=== PATIENT | male | born 1955 | race Caucasian/White ===

== ENCOUNTER 2020-05-10 07:26 | Emergency (ER) | payer OTHER ==
[~2020-05-10] VITALS: Ht 177.8 cm; Wt 86.2 kg
[~2020-05-10 07:26] MED LIST: DARVOCET-N 1001 EACH PO; NAPROSYN500 MG PO; PROSTATE PLUS
[2020-05-10] MEDS ORDERED: FLOMAX0.4 MG PO (07:38)
[2020-05-10 08:16] LABS: ABSOLUTE EOSINOPHILS 0.1 thou/uL (0.0-0.7); ABSOLUTE LYMPHOCYTES 1.6 thou/uL (0.8-5.3); ABSOLUTE MONOCYTES 0.7 thou/uL (0.0-1.2); ABSOLUTE NEUTROPHILS 4.1 thou/uL (1.6-8.1); BASOPHILS 0.8 %; EOSINOPHILS 1.6 %; HEMATOCRIT 36.6 % (42.0-52.0); HEMOGLOBIN 12.1 gm/dL (14.0-18.0); LYMPHOCYTES 24.6 %; MCH 28.1 pg (26.0-34.0); MCHC 33.1 g/dL (28.0-37.0); MCV 84.9 fL (80.0-100.0); MONOCYTES 10.8 %; MPV 7.7 fl. (7.2-11.1); NUCLEATED RBCS 0 /100WBC; PLATELET COUNT* 166 thou/uL (150-400); POLYS 62.2 %; RBC 4.31 mil/uL (4.50-6.00); RDW-CV 15.4 % (10.5-14.5); WBC 6.5 thou/uL (4.0-11.0)
[2020-05-10 08:18] LABS: CALCIUM 8.3 mg/dL (8.5-10.1); CREATININE 1.2 mg/dL (0.6-1.3); POTASSIUM 3.6 mmol/L (3.5-5.1)
[2020-05-10] MEDS ORDERED: VENTOLIN HFA 1818 GM INH (08:32)
[2020-05-10] MEDS ORDERED: AUGMENTIN 875-1 EACH PO (08:32)
[2020-05-10] MEDS ORDERED: MUCUS ER600 M1 PO (08:34)
[2020-05-10 08:45] VITALS: BP 124/71
--- NOTE | 2020-05-10 09:45 | EKG ---
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: : 1955 Requested By: Jj Sen Order Number: [id number] MD: Eugene García Measurements Intervals [place] Rate: 82 P: 54 VA: 150 QRS: 30 QRSD: 107 T: 65 QT: 372 QTc: 435 Interpretive Statements Sinus rhythm Baseline wander in lead(s) V1 Compared to ECG 06/14/2009 19:17:07 Sinus arrhythmia no longer present Electronically Signed On 05-10-2020 9:45:42 CARDIOVASCULAR OR NURSE by Eugene García [email or web address] <ELECTRONICALLY SIGNED> By: Eugene García MD, [facility] 05/10/20 0945 0744 Eugene García MD, [facility] /EPI
== END 2020-05-10 08:45 | disposition home or self-care (01) ==
LOC: M.ERS 07:26
PROVIDERS: Emergency Medicine Emergency Medical Services
DX: J18.9 Pneumonia, unspecified organism (principal); Z20.822 Contact with and (suspected) exposure to COVID-19; M81.0 Age-related osteoporosis without current pathological fracture; Z90.89 Acquired absence of other organs; Z79.899 Other long term (current) drug therapy; Z88.8 Allergy status to other drugs, medicaments and biological substances

== ENCOUNTER 2020-09-30 16:55 | Emergency (ER) | payer OTHER ==
[~2020-09-30] VITALS: Ht 165.1 cm; Wt 86.2 kg
[~2020-09-30 16:55] MED LIST changes: +AUGMENTIN 875-1 EACH PO; +FLOMAX0.4 MG PO; +MUCUS ER600 M1 PO; +VENTOLIN HFA 1818 GM INH
[2020-09-30] MEDS ORDERED: PREDNISONE 20 M20 M1 PO (17:42)
[2020-09-30] MEDS ORDERED: ZPAK PO (17:42)
[2020-09-30 17:49] VITALS: BP 136/93
== END 2020-09-30 17:50 | disposition home or self-care (01) ==
LOC: M.ERS 16:55
DX: J40 Bronchitis, not specified as acute or chronic (principal); Z20.822 Contact with and (suspected) exposure to COVID-19; M81.0 Age-related osteoporosis without current pathological fracture; Z88.8 Allergy status to other drugs, medicaments and biological substances

== ENCOUNTER 2021-03-22 09:13 | Emergency (ER) | payer OTHER ==
[~2021-03-22] VITALS: Ht 177.8 cm; Wt 81.7 kg
[~2021-03-22 09:13] MED LIST changes: +PREDNISONE 20 M20 M1 PO; +ZPAK PO
[2021-03-22] MEDS ORDERED: PROAIR HFA8.5 GM INH (10:41)
[2021-03-22] MEDS ORDERED: ZPAK PO (10:41)
[2021-03-22] MEDS ORDERED: PROMETHAZI6.25 MG/5 PO (10:41)
[2021-03-22 10:56] VITALS: BP 126/62
== END 2021-03-22 10:56 | disposition home or self-care (01) ==
LOC: M.ERS 09:13
DX: J20.9 Acute bronchitis, unspecified (principal); Z90.89 Acquired absence of other organs; Z79.899 Other long term (current) drug therapy; Z88.8 Allergy status to other drugs, medicaments and biological substances

== ENCOUNTER 2021-04-20 11:39 | Emergency (ER) | payer OTHER ==
[~2021-04-20] VITALS: Ht 177.8 cm; Wt 88.5 kg
[~2021-04-20 11:39] MED LIST changes: +PROAIR HFA8.5 GM INH; +PROMETHAZI6.25 MG/5 PO
[2021-04-20] MEDS ORDERED: AZITHROMYCIN 2250 MG PO (13:16)
[2021-04-20 13:26] VITALS: BP 120/70
[2021-04-20] MEDS ORDERED: DOXYCYCLINE 10100 MG PO (13:42)
== END 2021-04-20 13:26 | disposition home or self-care (01) ==
LOC: M.ERS 11:39
DX: J18.9 Pneumonia, unspecified organism (principal); Z20.822 Contact with and (suspected) exposure to COVID-19; R42 Dizziness and giddiness; M81.0 Age-related osteoporosis without current pathological fracture; Z90.89 Acquired absence of other organs; Z79.899 Other long term (current) drug therapy; Z88.8 Allergy status to other drugs, medicaments and biological substances